=== PATIENT | male | born 2005 | race Caucasian/White ===

== ENCOUNTER 2025-03-09 12:23 | Emergency (ER) | payer SELFPAY ==
[~2025-03-09] VITALS: Ht 175.2 cm; Wt 61.2 kg
[~2025-03-09 12:23] MED LIST: NKHM
[2025-03-09] MEDS ORDERED: CLINDAMYCIN HC300 MG PO ×2 (12:54→12:55)
[2025-03-09] MEDS ORDERED: CLINDAMYCIN HCL 300 MG CAPSULE PO ONE (13:00)
== END 2025-03-09 12:50 | disposition home or self-care (01) ==
LOC: ED 12:23
DX: K04.7 Periapical abscess without sinus (principal); K02.9 Dental caries, unspecified; Z88.0 Allergy status to penicillin; Z88.1 Allergy status to other antibiotic agents